=== PATIENT | female | born 1935 | race Caucasian/White ===

== ENCOUNTER 2019-01-30 10:05 | Outpatient (CLI) | payer MEDICARE, OTHER | END 2019-01-30 10:06 | disposition home or self-care (01) | DRG 561 | LOC: CONVCARE 10:05 | PROVIDERS: ATTEND Orthopaedic Surgery | DX: S42.201D Unspecified fracture of upper end of right humerus, subsequent encounter for fracture with routine healing (principal) | CPT/HCPCS: 73030 ==

== ENCOUNTER 2019-02-27 11:08 | Outpatient (CLI) | payer MEDICARE, OTHER | END 2019-02-27 11:09 | disposition home or self-care (01) | DRG 561 | LOC: CONVCARE 11:08 | PROVIDERS: ATTEND Orthopaedic Surgery | DX: S42.201D Unspecified fracture of upper end of right humerus, subsequent encounter for fracture with routine healing (principal) | CPT/HCPCS: 73030 ==